=== PATIENT | female | born 1995 | race Caucasian/White ===

== ENCOUNTER 2017-09-03 22:14 | Emergency (ER) | payer OTHER ==
[~2017-09-03] VITALS: Ht 165.1 cm; Wt 65.9 kg
[2017-09-03] MEDS ORDERED: CLIN300C3 PO (22:30)
[2017-09-03] MEDS ORDERED: ACET1TAB12 PO (22:30)
[2017-09-03] MEDS ORDERED: IBUP-2070 PO (22:30)
[2017-09-03 23:36] VITALS: BP 123/82
[2017-09-03 23:59] LABS: APPEARANCE,URINE CLEAR (CLEAR)
[2017-09-04] LABS: BILIRUBIN,URINE NEGATIVE (NEGATIVE); GLUCOSE, URINE (UA) NEGATIVE (NEGATIVE); KETONES,URINE NEGATIVE (NEGATIVE); LEUKOCYTE ESTERASE ,URINE NEGATIVE (NEGATIVE); NITRATE,URINE NEGATIVE (NEGATIVE); OCCULT BLOOD,URINE MODERATE (NEGATIVE); PH,URINE 5.5 (5.0-8.0); PROTEIN,URINE NEGATIVE (NEGATIVE); UROBILINOGEN,URINE 0.2 mg/dL (<=1.0)
[2017-09-04 00:13] LABS: BACTERIA,URINE None Seen /HPF (None Seen); SQUAMOUS EPITHELIAL CELL,UR Rare /LPF (None Seen); WBC,URINE 0-2 /HPF (0-5)
[2017-09-04] MEDS ORDERED: KETOROLAC TROMETHAMINE 30 MG/ML VIAL IM ONE (00:30)
== END 2017-09-04 01:40 | disposition home or self-care (01) ==
LOC: EMS 22:15
DX: M54.5 Low back pain (principal); M54.6 Pain in thoracic spine; K08.89 Other specified disorders of teeth and supporting structures
CPT/HCPCS: 71046; 81001; 84703; 96372; 99285; J1885

== ENCOUNTER 2017-09-25 08:08 | Emergency (ER) | payer OTHER ==
[~2017-09-25] VITALS: Ht 160 cm; Wt 63.6 kg
[~2017-09-25 08:08] MED LIST: ACET1TAB12 PO; CLIN300C3 PO; IBUP-2070 PO
[2017-09-25 08:15] VITALS: BP 104/69
[2017-09-25] MEDS ORDERED: EYE OINTMENT TP (08:16)
== END 2017-09-25 08:54 | disposition home or self-care (01) ==
LOC: EMS 08:09
DX: H00.025 Hordeolum internum left lower eyelid (principal)
CPT/HCPCS: 99282